=== PATIENT | male | born 1985 | race Caucasian/White ===

== ENCOUNTER 2021-11-11 12:49 | Emergency (ER) | payer OTHER | END 2021-11-11 15:52 | disposition home or self-care (01) | LOC: FER 12:49 | DX: Z47.89 Encounter for other orthopedic aftercare (principal); I10 Essential (primary) hypertension; F17.210 Nicotine dependence, cigarettes, uncomplicated; Z28.310 Unvaccinated for COVID-19 | CPT/HCPCS: 99282; J1885 ==